=== PATIENT | male | born 1935 | race Caucasian/White ===

== ENCOUNTER 2016-10-15 10:42 | Emergency (ER) | payer OTHER, MEDICARE ==
[~2016-10-15] VITALS: Ht 177.8 cm; Wt 81.6 kg
[~2016-10-15 10:42] MED LIST: ASPIRIN EC81 M1 PO; BLM PO; CYCLOBENZAPRINE10 M1 PO; HYDROCHLOROTHIA25 M1 PO; LISINOPRIL40 M1 PO; SIMVASTATIN10 M1 PO
[2016-10-15] MEDS ORDERED: DAILY MULTIPLE1 EACH PO (11:23)
[2016-10-15 11:44] LABS: ABSOLUTE BASOPHIL COUNT 0 /CUMM (0.0-0.2); ABSOLUTE EOSINOPHIL COUNT 0.1 /CUMM (0.0-0.7); ABSOLUTE GRANULOCYTE CT 3.5 /CUMM (1.4-6.5); ABSOLUTE LYMPH COUNT 0.9 /CUMM (1.2-3.4); ABSOLUTE MONOCYTE COUNT 0.8 /CUMM (0.10-0.60); BASOPHIL % 0.5 % (0.0-2.0); EOSINOPHIL % 1.9 % (0-5); GRANULOCYTE % 66.3 % (42.2-75.2); MEAN CORPUSCULAR HGB 32.1 PG (27.0-31.0); MEAN CORPUSCULAR HGB CONC 34.7 G/DL (33.0-37.0); MEAN CORPUSCULAR VOLUME 92.6 FL (80.0-94.0); MEAN PLATELET VOLUME 7.8 FL (7.4-10.4); PLATELET COUNT 157 /CUMM (130-400); RBC DISTRIBUTION WIDTH 12.9 % (11.5-14.5); RED BLOOD CELL CT 4.75 /CUMM (4.70-6.10); WHITE BLOOD CELL COUNT 5.2 /CUMM (4.8-10.8)
--- NOTE | 2016-10-15 11:54 | ED NECK/BACK PAIN COMPLAINT ---
History of Present Illness General Chief Complaint: Low Back Pain/Injury Stated Complaint: L LOWER BACK PAIN Source: patient Exam Limitations: no limitations Allergies Coded Allergies: NO KNOWN ALLERGIES (12/28/12) Reconcile Medications Aspirin (Ecotrin*) 81 MG TABLET.DR 1 TAB PO DAILY HEART HEALTH (Reported) Cyclobenzaprine HCl 10 MG TABLET 1 TAB PO PRN SPASMS (Reported) Hydrochlorothiazide 25 MG TABLET 1 TAB PO DAILY HEART (Reported) Lisinopril 40 MG TABLET 1 TAB PO DAILY HEART (Reported) Multivitamin (Daily Multiple Vitamin) 1 EACH TABLET 1 TAB PO DAILY SUPPLEMENT (Reported) Simvastatin (Simvastatin*) 10 MG TABLET 1 TAB PO QPM CHOLESTEROL (Reported) Tramadol HCl 50 MG TABLET 1 TAB PO BIDP PRN PAIN Triage Note: PT C/O LEFT FLANK PAIN SINCE THIS MORNING. STATES HX OF KIDNEY STONES BUT THIS FEELS DIFFERENT. STATES HE FELL ABOUT 2 FEET 3 WEEKS AGO AND BRUISED HIS RIBS. PT STATES PAIN IN FLANK BECAME WORSE TODAY AFTER HE SNEEZED Triage Nurses Notes Reviewed? yes HPI: This patient is a 80-year-old male who presented to the emergency department today coming by his for evaluation of left lower back pain. The patient reported that approximately 2 weeks ago he fell onto his left side and had bruising of his ribs. He reported that at that time he was seen at a clinic where they did an x-ray and told him that there was no fractures. He was taking it easy over the last couple of weeks and the pain seemed to be getting better. He reported that this morning he was sitting in his lounger when he had the urge to urinate. He reported that he urinated without any difficulty, no blood, urgency, frequency, or urinary burning. At that time he did have a minimal amount of discomfort in his left flank. He then had a sneezing fit and immediately had sharp, 8 out of 10 pain in his left flank region. The pain has been constant since onset and nonradiating. It is now approximately a 9 out of 10. The patient has had kidney stones in the past, but reported that this seems different. He denied any abdominal pain, nausea, vomiting, fevers, chills, chest pain, difficulty breathing, or any other associated symptoms. (TATIANA ROMERO,SEB) Vital Signs & Intake/Output Vital Signs & Intake/Output Vital Signs Date Time Temp Pulse Resp B/P B/P Pulse O2 O2 Flow FiO2 Mean Ox Delivery Rate 10/15 1247 98.2 83 16 142/81 93 Room Air ED Intake and Output 10/16 0000 10/15 1200 Intake Total Output Total Balance Patient 180 lb Weight Past History Travel History Traveled to [place] past 21 day No Medical History Any Pertinent Medical History? see below for history Neurological: NONE EENT: NONE Cardiovascular: hypertension, OPEN HEART SX Respiratory: NONE Gastrointestinal: irritable bowel syndrome, pancreatitis Hepatic: NONE Renal: NONE Musculoskeletal: NONE Psychiatric: NONE Endocrine: NONE Blood Disorders: NONE Cancer(s): NONE SIZE MIXER/Reproductive: NONE Other Medical Hx: BPH History of MRSA: No History of VRE: No History of CDIFF: No Pneumonia Vaccine: 02/15/15 Surgical History Surgical History: appendectomy, CABG, turp Psychosocial History Who do you live with Spouse Services at Home None What is your primary language Croatian Tobacco Use: Never used ETOH Use: occasional use Illicit Drug Use: denies illicit drug use Family History Family History, If Any: MOTHER FH: CHF (congestive heart failure) FATHER FH: myocardial infarction Hx Contributory? No (SEB SIMPSON PA-C) Review of Systems Review of Systems Constitutional: Reports: no symptoms. Eyes: Reports: no symptoms. Ears, Nose, Throat, Mouth: Reports: no symptoms. Respiratory: Reports: no symptoms. Cardiovascular: Reports: no symptoms. Gastrointestinal/Abdominal: Reports: no symptoms. Musculoskeletal: Reports: see HPI. Skin: Reports: no symptoms. Neurological/Psychological: Reports: no symptoms. All Other Systems: Reviewed and Negative (SEB SIMPSON PA-C) Physical Exam Physical Exam Neck: normal inspection, supple, full range of motion, normal alignment, no midline tenderness Comments: Well-developed well-nourished person in no acute distress HEENT: Normal EENT exam, head normocephalic, moist mucous membranes Pupils equally round and reactive to light. Neck: Supple, no lymphadenopathy Back: Antalgic gait. No midline tenderness. No CVA tenderness bilaterally Cardiovascular: Regular rate and rhythm with no murmurs, rubs, or gallops Respiratory: Mild tenderness to palpation over the left-sided rib cage at the midaxillary line. No respiratory distress. Breath sounds clear to auscultation bilaterally Abdomen: Soft, nontender and nondistended Extremity: Normal and equal pulses. Neuro: Alert oriented x3, cranial nerves II through XII grossly intact. Skin: No appreciable rash on exposed skin, skin is warm and dry. Psych: Mood and affect is normal (TATIANA ROMERO,SEB) Progress Differential Diagnosis: AAA, aortic dissection, cauda equina syn, herniated disc , myofascial strain, pyelo/UTI, sciatica, spinal cord inj, thoracic outlet syn, T/L spine injury, ureterolithiasis Diagnostic Imaging: Viewed by Me: Radiology Read. Discussed w/RAD: Radiology Read. Radiology Impression: PATIENT: KEIRY CANTU PRESENT AGE: 80 PATIENT ACCOUNT NO: [id number] : 37 LOCATION: [facility] ORDERING PHYSICIAN: SEB SIMPSON PA-C SERVICE DATE: 10/15/16 EXAM TYPE: RAD - XRY-RIBS UNILATERAL-LEFT EXAMINATION: XR RIBS, LEFT CLINICAL INFORMATION: Persistent pain status post fall 2 weeks ago. COMPARISON: Chest x-ray 2014. TECHNIQUE: PA chest x-ray, 2 views of the left ribs were obtained. FINDINGS: There are nondisplaced fractures involving what appear to represent the left seventh and eighth anterolateral ribs. The cardiomediastinal silhouette is stable in appearance with post median sternotomy and CABG changes with multiple intact sternal wires identified. The descending thoracic aorta remains tortuous. There is a stable appearing focus of probable discoid scarring or atelectasis in the left costophrenic angle laterally. The lungs and pleural spaces otherwise appear clear without evidence of congestion, consolidation, or significant appearing effusion or atelectasis. There is no evidence of pneumothorax or pulmonary edema. IMPRESSION: There are 2 nondisplaced left-sided rib fractures identified. There is no evidence of underlying pneumothorax hemothorax or contusion. Otherwise stable appearing chest x-ray. DICTATED BY: KISHAN REED MD DATE/TIME DICTATED:10/15/161239 COMPUTER GRAPHICS ILLUSTRATOR:RENE DATE/TIME TRANSCRIBED:10/15/161239 CONFIDENTIAL, DO NOT COPY WITHOUT APPROPRIATE AUTHORIZATION. <Electronically signed in Other Vendor System> SIGNED BY: KISHAN REED MD 10/15/16 5350 Comments: 10/15/2016 1:30:52 PM: Dr. Carreno is currently the patient's bedside for face-to- face evaluation. (TATIANA ROMERO,SEB) Plan of Care: Orders Procedure Date/time Status CULTURE,URINE 10/15 1117 Active URINALYSIS 10/15 1117 Complete COMPREHENSIVE METABOLIC PANEL 10/15 1117 Complete CBC WITHOUT DIFFERENTIAL 10/15 1117 Complete Laboratory Tests 10/15/16 1204: Urine Color YEL, Urine Clarity CLEAR, Urine pH 6.0, Ur Specific [place] 1.015, Urine Protein NEG, Urine Ketones NEG, Urine Nitrite NEG, Urine Bilirubin NEG, Urine Urobilinogen 0.2, Ur Leukocyte Esterase NEG, Ur Microscopic SEDIMENT EXAMINED, Urine RBC 1-3, Urine WBC RARE, Ur Epithelial Cells RARE, Urine Bacteria FEW H, Granular Casts FEW H, Urine Mucus FEW, Urine Hemoglobin TRACE- INTACT H, Urine Glucose NEG 10/15/16 1127: Anion Gap 11, Estimated GFR > 60, BUN/Creatinine Ratio 15.0, Glucose 81, Calcium 9.6, Total Bilirubin 0.9, AST 27, ALT 26, Alkaline Phosphatase 88, Total Protein 7.4, Albumin 4.4, Globulin 3.0, Albumin/Globulin Ratio 1.5, CBC w Diff NO MAN DIFF REQ, RBC 4.75, MCV 92.6, MCH 32.1 H, RDW 12.9, MPV 7.8, Gran % 66.3, Lymphocytes % 16.3 L, Monocytes % 15.0 H, Eosinophils % 1.9, Basophils % 0.5, Absolute Granulocytes 3.5, Absolute Lymphocytes 0.9 L, Absolute Monocytes 0.8 H, Absolute Eosinophils 0.1, Absolute Basophils 0, PUBS MCHC 34.7 Microbiology 10/15 120 URINE ROUT: Urine Culture - RES Departure Departure Disposition: HOME OR SELF CARE Condition: Stable Clinical Impression Primary Impression: Rib fractures Qualifiers: Encounter type: initial encounter Rib fracture type: multiple ribs Fracture type: closed Laterality: left Qualified Code: S22.42XA - Multiple fractures of ribs, left side, initial encounter for closed fracture Referrals: DEBBI GUIDO APRN (PCP/Family) Additional Instructions: Please take medication for pain as prescribed. Rest and avoid any heavy lifting or strenuous activity. Follow-up with your primary care physician. Return for any worsening symptoms or concerns. Departure Forms: Customer Survey General Discharge Information Prescriptions: Current Visit Scripts Tramadol HCl 1 TAB PO BIDP PRN PAIN #12 TAB (TATIANA ROMERO,SEB) PA/C[employer] MEAT CHEF Co-Sign Statement Statement: ED Attending supervision documentation- [X] I saw and evaluated the patient. I have also reviewed all the pertinent lab results and diagnostic results. I agree with the findings and the plan of care as documented in the PA's/COLD MEAT CHEF's documentation. [] I have reviewed the ED Record and agree with the PA's/COLD MEAT CHEF's documentation. [] Additions or exceptions (if any) to the PAs/COLD MEAT CHEF's note and plan are summarized below: [] (RADHA CARRENO DO)
[2016-10-15 12:47] VITALS: BP 142/81
--- NOTE | 2016-10-15 12:55 | RADIOLOGY REPORT ---
EXAMINATION: XR RIBS, LEFT CLINICAL INFORMATION: Persistent pain status post fall 2 weeks ago. COMPARISON: Chest x-ray 01/18/2015. TECHNIQUE: PA chest x-ray, 2 views of the left ribs were obtained. FINDINGS: There are nondisplaced fractures involving what appear to represent the left seventh and eighth anterolateral ribs. The cardiomediastinal silhouette is stable in appearance with post median sternotomy and CABG changes with multiple intact sternal wires identified. The descending thoracic aorta remains tortuous. There is a stable appearing focus of probable discoid scarring or atelectasis in the left costophrenic angle laterally. The lungs and pleural spaces otherwise appear clear without evidence of congestion, consolidation, or significant appearing effusion or atelectasis. There is no evidence of pneumothorax or pulmonary edema. IMPRESSION: There are 2 nondisplaced left-sided rib fractures identified. There is no evidence of underlying pneumothorax hemothorax or contusion. Otherwise stable appearing chest x-ray.
[2016-10-15] MEDS ORDERED: TRAMADOL HCL50 M1 PO (13:27)
== END 2016-10-15 14:02 ==
LOC: ERH 10:42
PROVIDERS: Physician Assistant
DX: S22.42XA Multiple fractures of ribs, left side, initial encounter for closed fracture (principal); X58.XXXA Exposure to other specified factors, initial encounter; Y93.89 Activity, other specified; Y92.9 Unspecified place or not applicable; R10.9 Unspecified abdominal pain; Z87.442 Personal history of urinary calculi
CPT/HCPCS: 71100-LT; 81001; 87086